=== PATIENT | female | born 1995 | race African-American/Black ===

== ENCOUNTER 2017-01-15 23:00 | Inpatient (IN) | payer MEDICAID ==
[2017-01-15 23:36] LABS: APPEARANCE,URINE CLOUDY; BILIRUBIN,URINE NEGATIVE (NEGATIVE); GLUCOSE, URINE NEGATIVE (NEGATIVE); KETONES,URINE TRACE mg/dL (NEGATIVE); LEUKOCYTE ESTERASE,URINE LARGE (NEGATIVE); NITRITE,URINE NEGATIVE (NEGATIVE); PROTEIN,URINE NEGATIVE (NEGATIVE); URINE SPECIFIC GRAVITY 1.014; UROBILINOGEN,URINE NEGATIVE mg/dL (<2.0)
[2017-01-15] MEDS ORDERED: NALBUPHINE HCL INJ 10 MG/1 ML AMPULE INJ ONE (23:38)
[2017-01-15] MEDS ORDERED: NALBUPHINE HCL INJ 10 MG/1 ML AMPULE ONE (23:45)
[2017-01-16 00:01] LABS: URINE BARBITURATES SCREEN NEGATIVE; URINE METHADONE SCREEN NEGATIVE; URINE OPIATES LOW NEGATIVE; URINE PHENCYCLIDINE SCREEN NEGATIVE
[2017-01-16 00:07] LABS: ABSOLUTE LYMPHOCYTES (AUTO) 2.4 10^3/uL (0.5-4.7); ABSOLUTE MONOCYTES (AUTO) 0.7 10^3/uL (0.1-1.4); BASOPHILS % (AUTO) 0.3 % (0-2); EOSINOPHILS % (AUTO) 0.4 % (0-6); HEMATOCRIT 29.6 % (36.0-47.0); HEMOGLOBIN 9.8 g/dL (12.0-15.5); HGB HCT DIFFERENCE -0.2; LYMPHOCYTES % (AUTO) 19.8 % (13-45); MEAN CORPUSCULAR HEMOGLOBIN 28.3 pg (27.0-33.4); MEAN CORPUSCULAR HGB CONC 33.2 g/dL (32.0-36.0); MEAN CORPUSCULAR VOLUME 85 fl (80-97); MONOCYTES % (AUTO) 6.1 % (3-13); RED BLOOD COUNT 3.48 10^6/uL (3.72-5.28); RED CELL DISTRIBUTION WIDTH 12.9 % (11.5-14.0); SEGMENTED NEUTROPHILS % (AUTO) 73.4 % (42-78); WHITE BLOOD COUNT 12.2 10^3/uL (4.0-10.5)
[2017-01-16 01:00] LABS: ADD HIVPANEL? NO; HIV (1 AND 2) ANTIBODY NEGATIVE (NEGATIVE)
[2017-01-16] MEDS ORDERED: OXYCODONE HCL IR 5 MG TABLET ONE ×2 (01:27→06:52)
[2017-01-16] MEDS ORDERED: AMPICILLIN SOD/SULBACTAM 3 GM VIAL IV PRN (01:43)
[2017-01-16] MEDS ORDERED: AMPICILLIN SOD/SULBACTAM 3 GM VIAL ONE (01:51)
[2017-01-16] MEDS: OXYCODONE HCL IR 5 MG TABLET PO PRN ×3 (02:01→12:48)
[2017-01-16 02:22] LABS: ALANINE AMINOTRANSFERASE 22 U/L (9-52); ALBUMIN 3.2 g/dL (3.5-5.0); ALKALINE PHOSPHATASE 89 U/L (38-126); ANION GAP 11 (5-19); ASPARTATE AMINO TRANSFERASE 17 U/L (14-36); BILIRUBIN,DIRECT 0.3 mg/dL (0.0-0.4); BILIRUBIN,TOTAL 0.6 mg/dL (0.2-1.3); BLOOD UREA NITROGEN 6 mg/dL (7-20); CALCIUM 9.3 mg/dL (8.4-10.2); CARBON DIOXIDE 22 mmol/L (22-30); CHLORIDE 109 mmol/L (98-107); CREATININE RESULT 0.56 mg/dL (0.52-1.25); GLUCOSE 83 mg/dL (75-110); SODIUM 141.6 mmol/L (137-145); TOTAL PROTEIN 6.3 g/dL (6.3-8.2)
[2017-01-16 02:25] LABS: POTASSIUM 3.2 mmol/L (3.6-5.0)
[2017-01-16] MEDS: RINGERS SOLUTION,LACTATED 1,000 ML IV PRN ×2 (03:36→09:30)
[2017-01-16] MEDS: AMPICILLIN SODIUM/SULBACTAM NA 3 GM in NORMAL SALINE 100 ML IV SCH ×4 (08:47→20:53)
[2017-01-16] MEDS: HYDROMORPHONE HCL INJ/PF 2 MG/ML AMPULE IV PRN ×3 (09:30→20:53)
[2017-01-16] MEDS: ONDANSETRON HCL INJ/PF 4 MG/2 ML SDV IV PRN (15:44)
[2017-01-16] MEDS ORDERED: FAMOTIDINE 20 MG TABLET PO ONE (19:30)
[2017-01-17] MEDS: HYDROMORPHONE HCL INJ/PF 2 MG/ML AMPULE IV PRN ×4 (02:07→14:12)
[2017-01-17] MEDS: AMPICILLIN SODIUM/SULBACTAM NA 3 GM in NORMAL SALINE 100 ML IV SCH ×4 (02:07→21:06)
[2017-01-17] MEDS: RINGERS SOLUTION,LACTATED 1,000 ML IV PRN ×3 (02:08→23:55)
[2017-01-17 06:26] LABS: HEMOGLOBIN 8.8 g/dL (12.0-15.5); HGB HCT DIFFERENCE 0.4; MEAN CORPUSCULAR HEMOGLOBIN 28.6 pg (27.0-33.4); MEAN CORPUSCULAR HGB CONC 33.8 g/dL (32.0-36.0); MEAN CORPUSCULAR VOLUME 85 fl (80-97); RED BLOOD COUNT 3.06 10^6/uL (3.72-5.28); RED CELL DISTRIBUTION WIDTH 13.3 % (11.5-14.0); WHITE BLOOD COUNT 7.3 10^3/uL (4.0-10.5)
[2017-01-17] MEDS: ONDANSETRON HCL INJ/PF 4 MG/2 ML SDV IV PRN (07:48)
--- NOTE | 2017-01-17 09:46 | Physician Advisory Note ---
Physician Advisor ProgressNote .: [facility], I have reviewed the medical record for this patient. Physician Advisor Statement: Possible documentation opportunities if attending agrees: 1. "acute Rt pyelonephritis" 2. Medical necessity - please document pt's ongoing sx & reasons she is not able to safely go home today. See below. As always, if concerned about any unstable VS or abnormal labs, please comment on them - what bad things they might indicate, why they concern you - & note what doing about them. Please also document each day the potential clinical problems you are concerned could occur if pt not kept in hospital for tx at this time. (These points are kelley - if present in each note, attending's status decision should be sufficiently supported.) Discussion: 21yo female at 29wks gestation w/ ? any chronic co-morbidities - presented 01/16 w/abd/flank pain on Rt, nausea, leukocytosis, (+) T 98.3, HR 74, RR16, BP 100/42. Unremarkable OB U/S, (+)U/A w/lg LE & trace ketones, renal U/S showing mild fullness Rt renal collecting system that could be physiologic given gravid state. K 3.2, BUN 6, Cr 0.56, abl 3.2, LFTs wnl, UDS (+)THC, ur cx pending, hepatitis tests pending. Attending ordered IV Unasyn, prn IV Dilaudid, prn po oxycodone, prn PO & IV Zofran, po Pepcid, LR @125, monitoring, ur cx, Hep BsAg, Hep C, RPR. Status: Appropriate to come in for Outpt Obs for abd pain of unclear etiology initially. However, now reportedly has dx of pyelonephritis, and has developed tachycardia of 102 this AM, although WBC is improved & still no fever. Ur cx remains pending. As of 01/16 PM, pt had no nausea but (+) sharp Rt flank pain. Apparently, her nausea has worsened or at least persisted significantly, as today, she is requiring IV Zofran. She is also requiring frequent Dilaudid IV for ongoing pain control, with 3 doses 01/16 & 2 doses already early this AM, a total of 4 so far in the last 24 hrs. Tx in inpatient hospital setting appears medically reasonable & necessary to protect pt's health, safety, & medical condition. Appropriate to change to Inpt status if attending agrees. Thanks for your help with documentation accuracy/specificity improvement! Isela German MD [facility] Physician Advisor, Fellow of [facility]
[2017-01-17] MEDS: FAMOTIDINE 20 MG TABLET PO SCH ×2 (09:58→17:54)
[2017-01-17 14:40] LABS: HEPATITIS C VIRUS AB <0.1 s/co ratio (0.0-0.9)
[2017-01-17] MEDS ORDERED: HYDROMORPHONE HCL INJ/PF 2 MG/ML AMPULE IV ONE (14:45)
[2017-01-17] MEDS: OXYCODONE HCL IR 5 MG TABLET PO PRN ×2 (17:54→22:34)
--- NOTE | 2017-01-17 22:50 | PDOC PROGRESS REPORT ---
Subjective Progress Note for:: 01/17/17 Subjective:: pt with continued flank pain. Still with nausea and requiring pain meds. Denies f/c/SOB. She had significant pain this afternoon requiring pain meds. Physical Exam - Physical Exam Vital Signs: Temp Pulse Resp BP Pulse Ox 98.5 F 83 16 117/68 100 01/17/17 19:41 01/17/17 19:41 01/17/17 19:41 01/17/17 19:41 01/17/17 19:41 Intake & Output 01/16/17 01/17/17 01/18/17 06:59 06:59 06:59 Intake Total 880 350 Balance 880 350 Weight 76.05 kg General appearance: PRESENT: no acute distress, well-developed, well-nourished Respiratory exam: PRESENT: symmetrical, unlabored Cardiovascular exam: PRESENT: RRR. ABSENT: diastolic murmur, rubs, systolic murmur Pulses: PRESENT: normal dorsalis pedis pul, +2 pedal pulses bilateral GI/Abdominal exam: PRESENT: normal bowel sounds, soft, tenderness - Right CVAT, no RUQ pain, No Left CVAT, no back pain, other. ABSENT: distended, guarding, mass, organolmegaly, rebound Rectal exam: PRESENT: deferred Extremities exam: PRESENT: full ROM. ABSENT: calf tenderness, clubbing, pedal edema Neurological exam: PRESENT: alert, awake, oriented to person, oriented to place , oriented to time, oriented to situation, CN II-XII grossly intact. ABSENT: motor sensory deficit Psychiatric exam: PRESENT: appropriate affect, normal mood. ABSENT: homicidal ideation, suicidal ideation Skin exam: PRESENT: dry, intact, warm. ABSENT: cyanosis, rash Result Laboratory Results: 01/17/17 06:16 01/15/17 23:51 01/17/17 06:16 WBC 7.3 RBC 3.06 L Hgb 8.8 L Hct 26.0 L MCV 85 MCH 28.6 MCHC 33.8 RDW 13.3 Plt Count 211 Impressions: Obstetrics Ultrasound 01/15/17 00:00 IMPRESSION: LIMITED OBSTETRICAL ULTRASOUND WITH MEASURED PARAMETERS DELINEATED ABOVE. Trimester of : Third trimester - 28 weeks to delivery. Renal Ultrasound 01/16/17 00:00 IMPRESSION: 1. Minimal fullness in the right renal collecting system is probably physiologic given the patient's gravid state. Otherwise unremarkable kidneys. Assessment & Plan - Diagnosis (1) Pyelonephritis complicating in third trimester Is this a current diagnosis for this admission?: YesPlan: Dx with pyelo. Afebrile but developed tachy this am. Right CVAT persists. Tachy now resolved. elevated WBC on admission and now this morning normal. Will repeat CBC in am. Culture is still pending. Pt still requiring IV narcotics this afternoon. Reviewed with pt realistic expectations of pain and reviewed that when culture returns and if continued to appear improved that would recommend discharge tomorrow with po abx depending on sensitivities. Pt reports pain significantly improved this pm. Anticipate discharge tomorrow. - Time Time Spent with patient: Less than 15 minutes Critical Time spent with patient: Less than 15 minutes Medications reviewed and adjusted accordingly: Yes Anticipated discharge: Home Within: within 24 hours - Inpatient Certification Based on my medical assessment, after consideration of the patient's comorbidities, presenting symptoms, or acuity I expect that the services needed warrant INPATIENT care.: Yes I certify that my determination is in accordance with my understanding of Medicare's requirements for reasonable and necessary INPATIENT services [42 CFR 412.3e].: Yes Medical Necessity: Need For IV Fluids, Need for Pain Control, Need for IV Antibiotics Post Hospital Care: D/C [place] [facility] Documentation
[2017-01-18] MEDS: AMPICILLIN SODIUM/SULBACTAM NA 3 GM in NORMAL SALINE 100 ML IV SCH ×3 (02:46→14:51)
[2017-01-18] MEDS: FAMOTIDINE 20 MG TABLET PO SCH (09:54)
[2017-01-18] MEDS: RINGERS SOLUTION,LACTATED 1,000 ML IV PRN (10:39)
[2017-01-18] MEDS ORDERED: FLUCONAZOLE 100 MG TABLET PO ONE (10:55)
--- NOTE | 2017-01-18 11:04 | PDOC DISCHARGE SUMMARY ---
General - Admit/Disc Date/PCP Admission Date/Primary Care Provider: 01/17/17 10:55 Discharge Date: 01/18/17 - Discharge Diagnosis (1) Pyelonephritis complicating in third trimester Is this a current diagnosis for this admission?: Yes - Additional Information Discharge Activity: Activity As Tolerated Home Medications: No Home Medications 01/16/17 History of Present Illness History of Present Illness: JULIAN CEDENO is a 21 year old female Hospital Course Hospital Course: has responded well to IV antibiotics. Flank pain improved. has some vaginal irritation today Physical Exam - Physical Exam Vital Signs: Temp Pulse Resp BP Pulse Ox 98.0 F 79 14 116/65 100 01/18/17 08:00 01/18/17 08:00 01/18/17 08:00 01/18/17 08:00 01/18/17 08:00 Intake & Output 01/17/17 01/18/17 01/19/17 06:59 06:59 06:59 Intake Total 880 850 Balance 880 850 General appearance: PRESENT: no acute distress, cooperative GI/Abdominal exam: PRESENT: soft - gravid and nontender. + movement palpable Result Laboratory Results: 01/17/17 06:16 01/15/17 23:51 Impressions: Obstetrics Ultrasound 01/15/17 00:00 IMPRESSION: LIMITED OBSTETRICAL ULTRASOUND WITH MEASURED PARAMETERS DELINEATED ABOVE. Trimester of : Third trimester - 28 weeks to delivery. Renal Ultrasound 01/16/17 00:00 IMPRESSION: 1. Minimal fullness in the right renal collecting system is probably physiologic given the patient's gravid state. Otherwise unremarkable kidneys. Plan Discharge Plan: discharge home with PO antibiotics and diflucan for prn use for Yeast. advised to aggressively hydrate. Needs appointment for f/u with health department [facility] Time Spent: Less than 30 Minutes
[2017-01-18 12:43] VITALS: BP 117/57
== END 2017-01-18 15:35 | disposition home or self-care (01) | DRG 781 ==
LOC: LC 23:00 → LR 01-16 02:00 → 2S 01-16 08:30 → OBSVTOIN 01-17 10:55
PROVIDERS: ADMIT Specialist; ATTEND Specialist
DX: O23.03 Infections of kidney in pregnancy, third trimester (principal); Z3A.28 28 weeks gestation of pregnancy
CPT/HCPCS: 36415; 76770; 76815; 80053; 80307; 81001; 85025; 85027; 86592; 86701; 86762; 86803; 86804; 86850; 86900; 86901; 87086; 87340; G0378; G0379; J0295; J1170; J2300; J2405; J7120